=== PATIENT | female | born 1955 | race Caucasian/White ===

== ENCOUNTER 2022-10-18 08:39 | Emergency (ER) | payer MEDICARE, SELFPAY ==
--- NOTE | 2022-10-18 08:55 | EXP.UTC ---
Discharge Plan Disposition Patient Disposition: Home, Self-Care Condition: Good Prescriptions Prescriptions: New azithromycin [Zithromax] 250 mg tablet 250 mg PO UD DOSE PK Qty: 6 0RF Rx Instructions: Take two (2) tablets today, then one (1) tablet days #2 thru #5 benzonatate [benzonatate] 100 mg capsule 100 mg PO TIDP PRN (Reason: Cough) Qty: 30 0RF Paxlovid (EUA) 300 mg (150 mg x 2)-100 mg tablet See Rx Instructions .ROUTE .COMPLEX Qty: 30 0RF Rx Instructions: take TWO 150 mg tablets of nirmatrelvir with ONE 100 mg tablet of ritonavir twice daily for 5 days No Action omega-3 acid ethyl esters [Lovaza] 1 gram capsule 2 cap PO BID raloxifene 60 mg tablet 60 mg PO ONCE valsartan [Diovan] 80 mg tablet 80 mg PO BID budesonide-formoterol [Symbicort] 80-4.5 mcg/actuation HFA aerosol inhaler 2 puff INHALATION BID azelastine-fluticasone [Dymista] 137-50 mcg/spray spray,non-aerosol 1 spray INTRANASAL BID montelukast [Singulair] 10 mg tablet 10 mg PO QPM lovastatin 10 mg tablet 10 mg PO QPM olopatadine [Patanol] 0.1 % drops 1 drp OPHTHALMIC BID loratadine [Allergy Relief (loratadine)] 10 mg tablet 10 mg PO ONCE Referrals Follow up/Referrals: Nisa Benavidez APRN [Primary Care Provider] - See instructions Activity Restrictions/Add. Instructions Additional Instructions/Restrictions: Drink plenty of fluids. Take tylenol or ibuprofen for pain or fever. Take the medications as directed. Follow up with your regular doctor. GO TO THE ER FOR ANY WORSENING SYMPTOMS Quarantine until you know the results of your covid-19 test. Notify your school or workplace of your results and follow their instructions regarding return to work/school. Finish the steroids that you are currently taking. Clinical Impressions Clinical Impression: Acute viral syndrome Instructions Patient Instructions: Coronavirus Disease 2019, Preventing the Spread of Coronavirus Discharge Instructions Discharge ED Provider: Kamron Abernathy [facility] [place] General Stated complaint: sob, cough, head congestion, sore throat Time Seen by Provider: 10/18/22 08:55 History of Present Illness Provider Complaint: She states that for the past 3 days she has felt bad, had a cough, had sinus congestion and a sore throat. Her tested positive for covid-19 last week. She denies any shortness of breath. Related Data Home Medications Medication Instructions Recorded Confirmed azelastine-fluticasone 137 mcg-50 1 spray intranasal BID 05/07/18 mcg/spray nasal spray (Dymista) budesonide-formoterol HFA 80 2 puff inhalation BID 05/07/18 mcg-4.5 mcg/actuation aerosol inhaler (Symbicort) loratadine 10 mg tablet (Allergy 10 mg PO ONCE 05/07/18 Relief (loratadine)) lovastatin 10 mg tablet 10 mg PO QPM 05/07/18 montelukast 10 mg tablet 10 mg PO QPM 05/07/18 (Singulair) olopatadine 0.1 % eye drops 1 drp ophthalmic (eye) BID 05/07/18 (Patanol) omega-3 acid ethyl esters 1 gram 2 cap PO BID 05/07/18 capsule (Lovaza) raloxifene 60 mg tablet 60 mg PO ONCE 05/07/18 valsartan 80 mg tablet (Diovan) 80 mg PO BID 05/07/18 Previous Rx's Medication Instructions Recorded azithromycin 250 mg tablet 250 mg PO UD DOSE PK #6 tabs 10/18/22 (Zithromax) benzonatate 100 mg capsule 100 mg PO TIDP PRN Cough #30 caps 10/18/22 nirmatrelvir 300 mg (150 mg See Rx Instructions PO .COMPLEX 10/18/22 x2)-ritonavir 100 mg tablet,dose #30 tabs pack(EUA) (Paxlovid) Allergies Allergy/AdvReac Type Severity Reaction Status Date / Time naproxen [NAPROXEN] Allergy Intermediate NA-NAUSEA Verified 10/18/22 09:00 Penicillins Allergy Verified 10/18/22 09:00 [facility] Disclaimer: The information contained in this section may have been updated after the patient was seen, as this information can be updated by other users. Social History (Reviewed 10/19/22
[2022-10-18 08:58] VITALS: BP 133/73; PULSE 98; RESP 18; TEMP 37.2; O2SAT 99; BMI 38.4
[2022-10-18 09:14] LABS: UTC Influenza A Antigen Negative (Negative)
[2022-10-18 09:15] LABS: UTC Influenza B Antigen Negative (Negative)
[2022-10-18 09:51] VITALS: BP 133/73; PULSE 98; RESP 18; TEMP 37.2
== END 2022-10-18 09:52 | disposition home or self-care (01) ==
PROVIDERS: Emergency Provider Nurse Practitioner Family; PCP Nurse Practitioner
DX: U07.1 COVID-19 (principal); R06.02 Shortness of breath; R05.9 Cough, unspecified; R09.89 Other specified symptoms and signs involving the circulatory and respiratory systems; J02.9 Acute pharyngitis, unspecified
CPT/HCPCS: 87804; 99212; C9803; G0463; U0003; U0005

== ENCOUNTER 2024-08-03 08:15 | Emergency (ER) | payer MEDICARE, SELFPAY ==
[2024-08-03 08:30] VITALS: BP 116/59; PULSE 90; RESP 20; TEMP 36.8; O2SAT 96; BMI 33.3
--- NOTE | 2024-08-03 08:39 | ED_ITS ---
Discharge Plan Disposition Patient Disposition: Home, Self-Care Condition: Good Prescriptions Prescriptions: New benzonatate 100 mg capsule 100 mg PO TID PRN (Reason: cough) Qty: 30 0RF azithromycin [Zithromax Z-Vlad] 250 mg tablet See Rx Instructions .ROUTE .COMPLEX 5 Days Qty: 6 0RF Rx Instructions: For 250 mg dose pack: take 500 mg today (day 1), then 250 mg for 4 days (days 2-5) guaifenesin [Mucinex] 600 mg tablet extended release 12hr 600 - 1,200 mg PO BID PRN (Reason: cough) Qty: 20 0RF prednisone 10 mg tablet 10 mg PO BID 5 Days Qty: 10 0RF No Action omega-3 acid ethyl esters [Lovaza] 1 gram capsule 2 cap PO BID azelastine-fluticasone [Dymista] 137-50 mcg/spray spray,non-aerosol 1 spray INTRANASAL BID montelukast [Singulair] 10 mg tablet 10 mg PO QPM olopatadine [Patanol] 0.1 % drops 1 drp OPHTHALMIC BID cyclobenzaprine 10 mg tablet 20 mg PO DAILY Patient Comments: TAKE 2 TABLETS BY MOUTH ONCE DAILY tizanidine 4 mg tablet 4 mg PO DAILY Patient Comments: TAKE 1 TABLET BY MOUTH ONCE DAILY famotidine 40 mg tablet 40 mg PO DAILY Patient Comments: TAKE 1 TABLET BY MOUTH ONCE DAILY acyclovir 400 mg tablet 400 mg PO DAILY Patient Comments: TAKE 1 TABLET BY MOUTH ONCE DAILY leflunomide 20 mg tablet 20 mg PO DAILY Patient Comments: TAKE 1 TABLET BY MOUTH ONCE DAILY fluticasone propion-salmeterol 100-50 mcg/dose blister with device 2 ea INHALATION BID Patient Comments: INHALE 2 PUFFS TWICE DAILY albuterol sulfate 90 mcg/actuation HFA aerosol inhaler 2 puff INHALATION Q6HP PRN (Reason: SOA) Patient Comments: INHALE 2 PUFFS BY MOUTH EVERY 6 HOURS NEEDED ipratropium bromide 42 mcg (0.06 %) spray,non-aerosol 2 spray INTRANASAL TID Patient Comments: USE 2 SPRAY(S) IN EACH NOSTRIL THREE TIMES DAILY hydroxyzine HCl 10 mg tablet 10 mg PO HS Patient Comments: TAKE 1 TABLET BY MOUTH AT BEDTIME NEEDED FOR ITCHING losartan 100 mg tablet 100 mg PO DAILY Patient Comments: TAKE 1 TABLET BY MOUTH ONCE DAILY spironolactone 50 mg tablet 50 mg PO DAILY Patient Comments: TAKE 1 TABLET BY MOUTH ONCE DAILY ezetimibe 10 mg tablet 10 mg PO DAILY Patient Comments: TAKE 1 TABLET BY MOUTH ONCE DAILY AT BEDTIME levocetirizine 5 mg tablet 5 mg PO DAILY Patient Comments: TAKE 1 TABLET BY MOUTH ONCE DAILY [place] Ellipta 100-62.5-25 mcg blister with device 1 ea INHALATION DAILY Patient Comments: INHALE 1 PUFF BY MOUTH ONCE DAILY aspirin 81 mg Capsule 81 mg PO DAILY Referrals Follow up/Referrals: Nisa Benavidez APRN [Primary Care Provider] - See instructions Activity Restrictions/Add. Instructions Additional Instructions/Restrictions: *Monitor Temp, Over the counter Motrin or Tylenol as directed/as needed Tylenol every 4 hours and Motrin every 6 hours (as long as your family doctor has told you that you can take it) for fever or pain. and straight to ER if unable to l ower temp less than 101.0 after medication given *Warm salt water gargles may help to soothe the throat *Throat Lozenges? *Warm fluids like tea with honey may help to soothe the throat? *Sleep elevated *Humidifier/Vaporizer Take medication as prescribed Follow up IMMEDIATELY for new or worsening symptoms or no Noticeable improvement over the next 48-72 hours. 911 for difficulty breathing or swallowing Clinical Impressions Clinical Impression: Otitis media Qualifiers: Otitis media type: unspecified Laterality: right Qualified Code(s): H66.91 - Otitis media, unspecified, right ear Instructions Patient Instructions: Ear Infections (Alternative Therapy), Middle Ear Infection Print Language Print Language: Kazakh Discharge ED Provider: Winnie Snow [facility] [place] HPI General Stated complaint: cough, congestion, Pain in R ear Mode of Arrival: Ambulatory Source of Information: Patient Limitations: No Limitations Time Seen by Provider: 08/03/24 08:39 Description of Symptoms (Recalled from Triage Doc. by RN): PATIENT C/O CONGESTION, COUGH AND EAR PAIN X 3 DAYS HEENT Symptoms (Recalled from RN notes): Yes Resp Symptoms (Recalled from RN notes): Yes Skin Symptoms (Recalled from RN notes): No MS Symptoms (Recalled from RN notes): No Functional Status (Recalled from RN notes): WNL History of Present Illness Provider Complaint: Patient states that she has been having cough, sinus and chest congestion, pain in her right ear and drainage in the back of her throat So today she came in to get checked worried she may have a sinus infection or ear infection Related Data Home Medications ?Medication ?Instructions ?Recorded ?Confirmed azelastine 137 mcg-fluticasone 50 1 spray intranasal BID 05/07/18 08/03/24 mcg/spray nasal spray (Dymista) montelukast 10 mg tablet 10 mg PO QPM 05/07/18 08/03/24 (Singulair) olopatadine 0.1 % eye drops 1 drp ophthalmic (eye) BID 05/07/18 08/03/24 (Patanol) omega-3 acid ethyl esters 1 gram 2 cap PO BID 05/07/18 08/03/24 capsule (Lovaza) acyclovir 400 mg tablet 400 mg PO DAILY 08/03/24 08/03/24 albuterol sulfate 90 mcg/actuation 2 puff inhalation Q6HP PRN SOA 08/03/24 08/03/24 aerosol inhaler aspirin 81 mg capsule 81 mg PO DAILY 08/03/24 08/03/24 cyclobenzaprine 10 mg tablet 20 mg PO DAILY 08/03/24 08/03/24 ezetimibe 10 mg tablet 10 mg PO DAILY 08/03/24 08/03/24 famotidine 40 mg tablet 40 mg PO DAILY 08/03/24 08/03/24 fluticasone 100 mcg-salmeterol 50 2 ea inhalation BID 08/03/24 08/03/24 mcg/dose blistr powdr for inhalation fluticasone fur. 100 mcg-umeclid 1 ea inhalation DAILY 08/03/24 08/03/24 62.5 mcg-vilant 25 mcg inhalat.powder (Trelegy Ellipta) hydroxyzine HCl 10 mg tablet 10 mg PO HS 08/03/24 08/03/24 ipratropium bromide 42 mcg (0.06 2 spray intranasal TID 08/03/24 08/03/24 %) nasal spray leflunomide 20 mg tablet 20 mg PO DAILY 08/03/24 08/03/24 levocetirizine 5 mg tablet 5 mg PO DAILY 08/03/24 08/03/24 losartan 100 mg tablet 100 mg PO DAILY 08/03/24 08/03/24 spironolactone 50 mg tablet 50 mg PO DAILY 08/03/24 08/03/24 tizanidine 4 mg tablet 4 mg PO DAILY 08/03/24 08/03/24 Previous Rx's ?Medication ?Instructions ?Recorded azithromycin 250 mg tablet See Rx Instructions PO .COMPLEX 5 08/03/24 (Zithromax Z-Vlad) days #6 tabs benzonatate 100 mg capsule 100 mg PO TID PRN cough #30 caps 08/03/24 guaifenesin 600 mg tablet, 600 - 1,200 mg (1 - 2 x 600 mg) PO 08/03/24 extended release 12 hr (Mucinex) BID PRN cough #20 tabs prednisone 10 mg tablet 10 mg PO BID 5 days #10 tabs 08/03/24 Allergies Allergy/AdvReac Type Severity Reaction Status Date / Time naproxen [NAPROXEN] Allergy Intermediate NA-NAUSEA Verified 10/18/22 09:00 cefadroxil Allergy Unknown Verified 08/03/24 08:37 allergy reaction Penicillins Allergy Unknown Verified 08/03/24 08:37 allergy reaction Worker's Comp Is this a Worker's Comp case?: No [facility] Disclaimer: The information contained in this section may have been updated after the patient was seen, as this information can be updated by other users. Medical History (Updated 08/03/24 @ 08:48 by Winnie Snow APRN) Brady's palsy Asthma Hyperlipidemia Hypertension Surgical History (Updated 08/03/24 @ 08:39 by Josefina Alberto RN) History of tonsillectomy History of section Social History Smoking Status: Never smoker alcohol intake: never current occupational status: employed Travel in the last 8 weeks: None ROS Obtained: Yes All systems reviewed & no additional complaints except as documented and Yes Systems reviewed as appropriate & no additional complaints except as documented Constitutional Constitutional: Reports system reviewed and no additional complaints, except as documented and Reports as per HPI ENT Ears, Nose, Mouth, and Throat: Reports system reviewed and no additional complaints, except as documented, Reports as per HPI, Reports otalgia, Reports sinus pain and Reports sinus pressure Cardiovascular Cardiovascular: Reports system reviewed and no additional complaints, except as documented and Reports as per HPI Respiratory Respiratory: Reports system reviewed and no additional complaints, except as documented, Reports as per HPI, Reports chest congestion and Reports cough Gastrointestinal Gastrointestingal: Reports system reviewed and no additional complaints, except as documented and as per HPI Physical Exam General General appearance: alert and in no apparent distress ENT ENT exam: Present mucous membranes moist Expanded ENT Exam TM/Canal exam: Right TM: erythema and bulging Nose exam: Present sinus tenderness Throat exam: Present other (PND noted) Respiratory Respiratory exam: Present normal lung sounds bilaterally; Absent respiratory distress or wheezes Cardiovascular Cardiovascular exam: Present regular rate, normal rhythm and normal heart sounds Abdominal Exam Abdominal exam: Present soft and normal bowel sounds; Absent distention or tenderness Neurological Exam Neurological exam: Present alert, oriented X3 and normal gait Medical Decision Making Medical Records Screening: Per USPSTF and CDC recommendations, given the prevalence of disease in our region, it is our hospital?s policy to screen for HIV and viral Hepatitis for all patients aged 18 and over and those with ongoing risk factors. Drew Inquiry Pt receiving controlled substance: No Drew was queried for this patient: No Vital Signs: 08/03/24 08:30 Temperature 98.2 F Temperature Source Oral Pulse Rate [Left Brachial] 90 Respiratory Rate 20 Blood Pressure [Left Arm] 116/59 L Blood Pressure Mean [Left Arm] 78 Blood Pressure Source [Left Arm] Automatic Cuff Blood Pressure Position [Left Arm] Sitting 02 Sat by Pulse Oximetry 96 Oxygen Delivery Method Room Air Medical Decision Narrative: Patient states that she has taken prednisone in the past without complications or reactions
[2024-08-03 08:54] VITALS: BP 116/59; PULSE 90; RESP 20; TEMP 36.8; O2SAT 96
== END 2024-08-03 08:58 | disposition home or self-care (01) ==
PROVIDERS: Emergency Provider Nurse Practitioner; PCP Nurse Practitioner
DX: H66.91 Otitis media, unspecified, right ear (principal)
CPT/HCPCS: 99213; G0381

== ENCOUNTER 2024-10-19 08:26 | Emergency (ER) | payer MEDICARE, SELFPAY ==
[2024-10-19 09:00] VITALS: BP 123/73; PULSE 85; RESP 19; TEMP 36.9; O2SAT 97; BMI 32.8
--- NOTE | 2024-10-19 09:18 | ED_ITS ---
Discharge Plan Disposition Patient Disposition: Home, Self-Care Condition: Good Prescriptions Prescriptions: New azithromycin [Zithromax Z-Vlad] 250 mg tablet See Rx Instructions .ROUTE .COMPLEX 5 Days Qty: 6 0RF Rx Instructions: For 250 mg dose pack: take 500 mg today (day 1), then 250 mg for 4 days (days 2-5) methylprednisolone [Medrol (Vlad)] 4 mg tablets,dose pack See Rx Instructions .Route .COMPLEX 6 Days Qty: 21 0RF Rx Instructions: taper pack; No Action cyclobenzaprine 10 mg tablet 20 mg PO DAILY Patient Comments: TAKE 2 TABLETS BY MOUTH ONCE DAILY tizanidine 4 mg tablet 4 mg PO DAILY Patient Comments: TAKE 1 TABLET BY MOUTH ONCE DAILY famotidine 40 mg tablet 40 mg PO DAILY Patient Comments: TAKE 1 TABLET BY MOUTH ONCE DAILY acyclovir 400 mg tablet 400 mg PO DAILY Patient Comments: TAKE 1 TABLET BY MOUTH ONCE DAILY leflunomide 20 mg tablet 20 mg PO DAILY Patient Comments: TAKE 1 TABLET BY MOUTH ONCE DAILY montelukast 10 mg tablet 10 mg PO DAILY Patient Comments: TAKE 1 TABLET BY MOUTH ONCE DAILY hydroxyzine HCl 10 mg tablet 10 mg PO DAILY losartan 100 mg tablet 100 mg PO DAILY Patient Comments: TAKE 1 TABLET BY MOUTH ONCE DAILY spironolactone 50 mg tablet 50 mg PO DAILY Patient Comments: TAKE 1 TABLET BY MOUTH ONCE DAILY ezetimibe 10 mg tablet 10 mg PO HS Patient Comments: TAKE 1 TABLET BY MOUTH ONCE DAILY AT BEDTIME omega-3 acid ethyl esters 1 gram capsule 1 g PO DAILY Patient Comments: TAKE 2 CAPSULES BY MOUTH TWICE DAILY levocetirizine 5 mg tablet 5 mg PO DAILY [place] Ellipta 100-62.5-25 mcg blister with device 1 ea INHALATION DAILY Patient Comments: INHALE 1 PUFF BY MOUTH ONCE DAILY Referrals Follow up/Referrals: Nisa Benavidez APRN [Primary Care Provider] - See instructions Activity Restrictions/Add. Instructions Additional Instructions/Restrictions: *Monitor Temp, Over the counter Motrin or Tylenol as directed/as needed Tylenol every 4 hours and Motrin every 6 hours (as long as your family doctor has told you that you can take it) for fever or pain. and straight to ER if unable to lower temp less than 101.0 after medication given *Warm salt water gargles may help to soothe the throat *Throat Lozenges? *Warm fluids like tea with honey may help to soothe the throat? *Sleep elevated *Humidifier/Vaporizer Follow up IMMEDIATELY for new or worsening symptoms or no Noticeable improvement over the next 48-72 hours. 911 for difficulty breathing or swallowing Clinical Impressions Clinical Impression: Sinusitis Instructions Patient Instructions: DI for Sinusitis, Sinusitis Print Language Print Language: Romanian Discharge ED Provider: Winnie Snow [facility] [place] HPI General Stated complaint: pain in ears, cough, congest, H/A Mode of Arrival: Ambulatory Source of Information: Patient Limitations: No Limitations Time Seen by Provider: 10/19/24 09:18 Description of Symptoms (Recalled from Triage Doc. by RN): PATIENT C/O HEADACHE, COUGH, DRAINAGE, AND SCRATCHY THROAT X 2 DAYS HEENT Symptoms (Recalled from RN notes): Yes Resp Symptoms (Recalled from RN notes): Yes Skin Symptoms (Recalled from RN notes): No MS Symptoms (Recalled from RN notes): No Functional Status (Recalled from RN notes): WNL History of Present Illness Provider Complaint: Patient states that she has been having sinus pain and pressure, headache, pressure like feeling in her ears and feeling like she is getting a sinus infection States that symptoms have got worse over the last few days Related Data Home Medications ?Medication ?Instructions ?Recorded ?Confirmed acyclovir 400 mg tablet 400 mg PO DAILY 10/19/24 10/19/24 cyclobenzaprine 10 mg tablet 20 mg PO DAILY 10/19/24 10/19/24 ezetimibe 10 mg tablet 10 mg PO HS 10/19/24 10/19/24 famotidine 40 mg tablet 40 mg PO DAILY 10/19/24 10/19/24 fluticasone fur. 100 mcg-umeclid 1 ea inhalation DAILY 10/19/24 10/19/24 62.5 mcg-vilant 25 mcg inhalat.powder (Trelegy Ellipta) hydroxyzine HCl 10 mg tablet 10 mg PO DAILY 10/19/24 10/19/24 leflunomide 20 mg tablet 20 mg PO DAILY 10/19/24 10/19/24 levocetirizine 5 mg tablet 5 mg PO DAILY 10/19/24 10/19/24 losartan 100 mg tablet 100 mg PO DAILY 10/19/24 10/19/24 montelukast 10 mg tablet 10 mg PO DAILY 10/19/24 10/19/24 omega-3 acid ethyl esters 1 gram 1 g PO DAILY 10/19/24 10/19/24 capsule spironolactone 50 mg tablet 50 mg PO DAILY 10/19/24 10/19/24 tizanidine 4 mg tablet 4 mg PO DAILY 10/19/24 10/19/24 Previous Rx's ?Medication ?Instructions ?Recorded azithromycin 250 mg tablet See Rx Instructions PO .COMPLEX 5 10/19/24 (Zithromax Z-Vlad) days #6 tabs methylprednisolone 4 mg tablets in See Rx Instructions .Route 10/19/24 a dose pack (Medrol (Vlad)) .COMPLEX 6 days #21 tabs Allergies Allergy/AdvReac Type Severity Reaction Status Date / Time naproxen (NAPROXEN) Allergy Intermediate NA-NAUSEA Verified 10/18/22 09:00 cefadroxil Allergy Unknown Verified 08/03/24 08:37 allergy reaction erythromycin base Allergy Unknown Verified 10/19/24 09:16 allergy reaction Penicillins Allergy Unknown Verified 08/03/24 08:37 allergy reaction Worker's Comp Is this a Worker's Comp case?: No [facility] Disclaimer: The information contained in this section may have been updated after the patient was seen, as this information can be updated by other users. Medical History (Updated 10/19/24 @ 09:33 by Winnie Snow APRN) Brady's palsy Asthma Hyperlipidemia Hypertension Surgical History (Updated 08/03/24 @ 08:39 by Josefina Alberto RN) History of tonsillectomy History of section Social History Smoking Status: Never smoker alcohol intake: never current occupational status: employed Travel in the last 8 weeks: None Have you lived/traveled outside [place] in past 30 days?: No Contact w/someone who lives/traveled outside US past 30 days?: No Exposure to someone with infectious disease in past 14 days?: No Do you have a fever (greater than 100.4 F or 38 C)?: No Have you tested positive for COVID-19: No Exposed to someone with COVID-19 in past 14 days?: No Do you have a sore throat?: Yes Do you have a cough?: Yes Do you have any weakness?: No Do you have any diarrhea?: No Are you experiencing any unusual bleeding?: No Do you have any muscle aches/pain?: No Do you have any abdominal pain?: No Are you experiencing loss of taste or smell?: No ROS Obtained: Yes All systems reviewed & no additional complaints except as documented and Yes Systems reviewed as appropriate & no additional complaints except as documented Constitutional Constitutional: Reports system reviewed and no additional complaints, except as documented, Reports as per HPI and Reports headache(s) ENT Ears, Nose, Mouth, and Throat: Reports system reviewed and no additional complaints, except as documented, Reports as per HPI, Reports otalgia, Reports headache(s), Reports sinus pain, Reports sinus pressure and Reports sore throat Cardiovascular Cardiovascular: Reports system reviewed and no additional complaints, except as documented and Reports as per HPI Respiratory Respiratory: Reports system reviewed and no additional complaints, except as documented and Reports as per HPI Gastrointestinal Gastrointestingal: Reports system reviewed and no additional complaints, except as documented and as per HPI Neurologic Neurologic: Reports headache(s) Physical Exam General General appearance: alert and in no apparent distress ENT ENT exam: Present mucous membranes moist Expanded ENT Exam TM/Canal exam: Right TM: erythema and loss of landmarks Nose exam: Present sinus tenderness Throat exam: Present other (pharyngeal erythema noted with PND) Respiratory Respiratory exam: Present normal lung sounds bilaterally; Absent respiratory distress or wheezes Cardiovascular Cardiovascular exam: Present regular rate, normal rhythm and normal heart sounds Neurological Exam Neurological exam: Present alert, oriented X3 and normal gait Medical Decision Making Medical Records Screening: Per USPSTF and CDC recommendations, given the prevalence of disease in our region, it is our hospital?s policy to screen for HIV and viral Hepatitis for all patients aged 18 and over and those with ongoing risk factors. Drew Inquiry Pt receiving controlled substance: No Drew was queried for this patient: No Vital Signs: 10/19/24 09:00 Temperature 98.4 F Temperature Source Oral Pulse Rate [Left Brachial] 85 Respiratory Rate 19 Blood Pressure [Left Arm] 123/73 Blood Pressure Mean [Left Arm] 89 Blood Pressure Source [Left Arm] Automatic Cuff Blood Pressure Position [Left Arm] Sitting 02 Sat by Pulse Oximetry 97 Oxygen Delivery Method Room Air Medical Decision Narrative: Patient states that she has taken azithromycin and Medrol in the past without reactions or complications
[2024-10-19 09:36] VITALS: BP 123/73; PULSE 85; RESP 19; TEMP 36.9; O2SAT 97
== END 2024-10-19 09:38 | disposition home or self-care (01) ==
PROVIDERS: Emergency Provider Nurse Practitioner; PCP Nurse Practitioner
DX: J01.90 Acute sinusitis, unspecified (principal)
CPT/HCPCS: 99213; G0381

== ENCOUNTER 2025-06-15 11:37 | Emergency (ER) | payer MEDICARE, SELFPAY ==
[2025-06-15] VITALS (8 sets, daily range): BP systolic 115–153; BP diastolic 53–83; PULSE 62–79; RESP 12–22; TEMP 36.7–36.9; O2SAT 95–98; BMI 35.1
--- NOTE | 2025-06-15 11:31 | ECG_ITS ---
APPROVED REPORT Exam: Resting ECG HR:62 bpm ECG Measurements Heart Rate 62 AXES PA 155 P 69 QRSd 85 QRS 64 QT 384 T 68 QTc 388 Conclusion SINUS RHYTHM LOW QRS VOLTAGE IN PRECORDIAL LEADS [QRS DEFLECTION < 1.0 mV IN CHEST LEADS] BORDERLINE ECG UNCONFIRMED REPORT Normal sinus rhythm. No ST elevation or depression. QTc normal at 388 Electronically signed by : MARIO HECTOR, 06/18/2025 06:58:22
--- NOTE | 2025-06-15 11:37 | CT_ITS ---
PROCEDURE INFORMATION: Exam: CTA Chest With Contrast Exam date and time: 06/15/2025 12:32 PM Age: 69 years old Clinical indication: Pain; Chest pressure; Additional info: Chest pain, shortness of breath TECHNIQUE: Imaging protocol: Computed tomographic angiography of the chest with contrast. Exam focused on the arteries. 3D rendering (Not supervised by radiologist): MIP and/or 3D reconstructed images were created by the technologist. Radiation optimization: All CT scans at this facility use at least one of these dose optimization techniques: automated exposure control; mA and/or kV adjustment per patient size (includes targeted exams where dose is matched to clinical indication); or iterative reconstruction. Contrast material: ISOVUE; Contrast volume: 80 ml; Contrast route: INTRAVENOUS (IV); COMPARISON: No relevant prior studies available. FINDINGS: Pulmonary arteries: No acute pulmonary emboli. Aorta: Unremarkable. No aortic aneurysm. No aortic dissection. Thyroid: Enlarged thyroid gland, with several isodense nodules, not definitively characterized on this study. Lungs: Small area of localized emphysema within the superior segment right lower lobe. Minimal posterior dependent atelectasis. Calcified granuloma within the posterior right lower lobe. Calcified granuloma within the right upper lobe. Pleural spaces: Unremarkable. No pneumothorax. No pleural effusion. Heart: Unremarkable. No cardiomegaly. No pericardial effusion. Lymph nodes: Calcified right hilar lymph nodes, compatible with prior granulomatous disease. Adrenal glands: 2.6 cm benign right adrenal adenoma. Bones/joints: Multilevel thoracic spine degenerative disc space narrowing and osteophyte formation. Soft tissues: Unremarkable. IMPRESSION: 1. No acute pulmonary emboli. 2. Enlarged thyroid gland, with several isodense nodules, not definitively characterized on this study. Recommend further evaluation with sonography on a nonurgent basis. COMMENTS: 1. Consistent with the [employer]'s Incidental Findings Committee white paper (J Am Samir Radiol 2015): In patients aged 35 years and older with an incidental thyroid nodule equal to or greater than 1.[address], MRI or extrathyroidal US, further evaluation with dedicated thyroid US is recommended for patients with normal life expectancy and without comorbidities. For smaller nodules without suspicious features, no further evaluation or follow up is recommended. 2. The presence of pulmonary emphysema on CT is an independent risk factor for lung cancer. In the absence of a history or active diagnosis of lung cancer, it is recommended that this patient with emphysema be evaluated for enrollment in a low dose CT lung cancer screening program.
--- NOTE | 2025-06-15 11:38 | [facility].EDGENADL ---
Discharge Plan Disposition Patient Disposition: Home, Self-Care Prescriptions Prescriptions: No Action cyclobenzaprine 10 mg tablet 20 mg PO DAILY Patient Comments: TAKE 2 TABLETS BY MOUTH ONCE DAILY tizanidine 4 mg tablet 4 mg PO DAILY Patient Comments: TAKE 1 TABLET BY MOUTH ONCE DAILY famotidine 40 mg tablet 40 mg PO DAILY Patient Comments: TAKE 1 TABLET BY MOUTH ONCE DAILY acyclovir 400 mg tablet 400 mg PO DAILY Patient Comments: TAKE 1 TABLET BY MOUTH ONCE DAILY leflunomide 20 mg tablet 20 mg PO DAILY Patient Comments: TAKE 1 TABLET BY MOUTH ONCE DAILY montelukast 10 mg tablet 10 mg PO DAILY Patient Comments: TAKE 1 TABLET BY MOUTH ONCE DAILY hydroxyzine HCl 10 mg tablet 10 mg PO DAILY losartan 100 mg tablet 100 mg PO DAILY Patient Comments: TAKE 1 TABLET BY MOUTH ONCE DAILY spironolactone 50 mg tablet 50 mg PO DAILY Patient Comments: TAKE 1 TABLET BY MOUTH ONCE DAILY ezetimibe 10 mg tablet 10 mg PO HS Patient Comments: TAKE 1 TABLET BY MOUTH ONCE DAILY AT BEDTIME omega-3 acid ethyl esters 1 gram capsule 1 g PO DAILY Patient Comments: TAKE 2 CAPSULES BY MOUTH TWICE DAILY levocetirizine 5 mg tablet 5 mg PO DAILY Trelegy Ellipta 100-62.5-25 mcg blister with device 1 ea INHALATION DAILY Patient Comments: INHALE 1 PUFF BY MOUTH ONCE DAILY azithromycin [Zithromax Z-Vlad] 250 mg tablet See Rx Instructions .ROUTE .COMPLEX 5 Days Qty: 6 0RF Rx Instructions: For 250 mg dose pack: take 500 mg today (day 1), then 250 mg for 4 days (days 2-5) methylprednisolone [Medrol (Vlad)] 4 mg tablets,dose pack See Rx Instructions .Route .COMPLEX 6 Days Qty: 21 0RF Rx Instructions: taper pack; Referrals Follow up/Referrals: Jermaine Branham MD [Staff Physician, Cardiology] - See instructions Provider,MD Marshall [Primary Care Provider, Medical] - See instructions Activity Restrictions/Add. Instructions Additional Instructions/Restrictions: You were found to have multiple nodules on your thyroid. I encourage you to follow-up with your primary care doctor as they may want to do ultrasounds to investigate this further. There is no evidence of a heart attack on today's visit, however I am referring you to our leaf conditioner, Dr. Branham for follow-up. I encourage you to call their office to schedule an appointment. If you develop any new or worsening symptoms, or if you become concerned for your health for any reason, return to the emergency department for evaluation Clinical Impressions Clinical Impression: Chest pain, Multiple thyroid nodules Print Language Print Language: [place] Discharge ED Provider: Charan Acosta Adult HPI General Chief complaint: Chest Pain Stated complaint: CP Time Seen by Provider: 06/15/25 11:38 Mode of Arrival: EMS Source of Information: Patient Limitations: No Limitations History of Present Illness HPI narrative: Tania Ortiz is a 69y female with past medical history of hypertension, hyperlipidemia who presents to the emergency department for complaints of chest pain. 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 She states that she was sitting when this happened and she went inside to sit in the court house, however the symptoms did not resolve. She went back out and met with the paramedics and was given 3 and 25 mg of aspirin. She states that her pain then went from a 9 out of 10 to a 1 out of 10. Reportedly she was initially hypotensive and started on fluid bolus, however she is normotensive here. She states that the pain is worsened with deep breathing. She denies any history of blood clots. She denies any recent leg swelling. She denies any hemoptysis or cough. She states that she does not feel overtly short of breath. She denies any cardiac history. Related Data Home Medications ?Medication ?Instructions ?Recorded ?Confirmed acyclovir 400 mg tablet 400 mg PO DAILY 10/19/24 10/19/24 cyclobenzaprine 10 mg tablet 20 mg PO DAILY 10/19/24 10/19/24 ezetimibe 10 mg tablet 10 mg PO HS 10/19/24 10/19/24 famotidine 40 mg tablet 40 mg PO DAILY 10/19/24 10/19/24 fluticasone fur. 100 mcg-umeclid 1 ea inhalation DAILY 10/19/24 10/19/24 62.5 mcg-vilant 25 mcg inhalat.powder (Trelegy Ellipta) hydroxyzine HCl 10 mg tablet 10 mg PO DAILY 10/19/24 10/19/24 leflunomide 20 mg tablet 20 mg PO DAILY 10/19/24 10/19/24 levocetirizine 5 mg tablet 5 mg PO DAILY 10/19/24 10/19/24 losartan 100 mg tablet 100 mg PO DAILY 10/19/24 10/19/24 montelukast 10 mg tablet 10 mg PO DAILY 10/19/24 10/19/24 omega-3 acid ethyl esters 1 gram 1 g PO DAILY 10/19/24 10/19/24 capsule spironolactone 50 mg tablet 50 mg PO DAILY 10/19/24 10/19/24 tizanidine 4 mg tablet 4 mg PO DAILY 10/19/24 10/19/24 Previous Rx's ?Medication ?Instructions ?Recorded azithromycin 250 mg tablet See Rx Instructions PO .COMPLEX 5 10/19/24 (Zithromax Z-Vlad) days #6 tabs methylprednisolone 4 mg tablets in See Rx Instructions .Route 10/19/24 a dose pack (Medrol (Vlad)) .COMPLEX 6 days #21 tabs Allergies Allergy/AdvReac Type Severity Reaction Status Date / Time naproxen (NAPROXEN) Allergy Intermediate NA-NAUSEA Verified 10/18/22 09:00 cefadroxil Allergy Unknown Verified 08/03/24 08:37 allergy reaction erythromycin base Allergy Unknown Verified 10/19/24 09:16 allergy reaction Penicillins Allergy Unknown Verified 08/03/24 08:37 allergy reaction PFSH PFSH Disclaimer: The information contained in this section may have been updated after the patient was seen, as this information can be updated by other users. Medical History (Updated 06/15/25 @ 13:35 by Charan Acosta MD) Brady's palsy Asthma Hyperlipidemia Hypertension Surgical History (Updated 08/03/24 @ 08:39 by Josefina Alberto RN) History of tonsillectomy History of section Social History Smoking Status: Never smoker alcohol intake: never current occupational status: employed Travel in the last 8 weeks?: None Have you lived/traveled outside [place] in past 30 days?: No Contact w/someone who lives/traveled outside US past 30 days?: No Exposure to someone with infectious disease in past 14 days?: No Do you have a fever (greater than 100.4 F or 38 C)?: No Have you tested positive for COVID-19?: No Exposed to someone with COVID-19 in past 14 days?: No Do you have a sore throat?: No Do you have a cough?: No Do you have any weakness?: No Do you have any diarrhea?: No Are you experiencing any unusual bleeding?: No Do you have any muscle aches/pain?: No Do you have any abdominal pain?: No Are you experiencing loss of taste or smell?: No Other Medical History Have you received the Flu Vaccine for this season: Yes ROS Obtained: Yes Systems reviewed as appropriate & no additional complaints except as documented Physical Exam General General appearance: alert and in no apparent distress Head Head exam: atraumatic Eye Eye exam: Present normal appearance ENT ENT exam: Present normal external ear exam Neck Neck exam: Present full ROM Chest Chest inspection: Present symmetric chest wall rise Respiratory Respiratory exam: Present normal lung sounds bilaterally; Absent respiratory distress Cardiovascular Cardiovascular exam: Present regular rate and normal rhythm Abdominal Exam Abdominal exam: Present soft; Absent tenderness or guarding Extremities Exam Extremities exam: Present normal inspection Back Exam Back exam: Present normal inspection Neurological Exam Neurological exam: Present alert and oriented X3 Psychiatric Psychiatric exam: Present normal affect Skin Skin exam: Present warm and dry Medical Decision Making Medical Records Screening: Per USPSTF and CDC recommendations, given the prevalence of disease in our region, it is our hospital?s policy to screen for HIV and viral Hepatitis for all patients aged 18 and over and those with ongoing risk factors. Drew Inquiry Pt receiving controlled substance: No Vital Signs: 06/15/25 11:47 06/15/25 12:00 06/15/25 12:45 Temperature 98.1 F Temperature Source Oral Pulse Rate 76 Pulse Rate [Left Radial] 79 Respiratory Rate 20 22 14 Blood Pressure 121/60 Blood Pressure [Right Arm] 121/81 Blood Pressure Mean [Right Arm] 94 02 Sat by Pulse Oximetry 96 95 Oxygen Delivery Method Room Air 06/15/25 13:00 06/15/25 14:01 06/15/25 14:31 Temperature Temperature Source Pulse Rate 73 62 68 Pulse Rate [Left Radial] Respiratory Rate 12 Blood Pressure 153/83 H 125/60 116/59 L Blood Pressure [Right Arm] Blood Pressure Mean [Right Arm] 02 Sat by Pulse Oximetry 96 98 98 Oxygen Delivery Method Room Air 06/15/25 15:01 Temperature Temperature Source Pulse Rate 63 Pulse Rate [Left Radial] Respiratory Rate Blood Pressure 115/53 L Blood Pressure [Right Arm] Blood Pressure Mean [Right Arm] 02 Sat by Pulse Oximetry 98 Oxygen Delivery Method Lab Data Lab Results 06/15/25 11:45: WBC 8.6, RBC 4.24, Hgb 12.5, Hct 38.5, MCV 90.8, MCH 29.5, MCHC 32.5, RDW 15.0, Plt Count 384, MPV 10.4, Neut % (Auto) 62.4, Lymph % (Auto) 18.7, Otoe % (Auto) 11.7 H, Eos % (Auto) 5.9, Baso % (Auto) 0.8, Neut # (Auto) 5.4, Lymph # (Auto) 1.6, Otoe # (Auto) 1.0, Eos # (Auto) 0.5 H, Baso # (Auto) 0.1, Sodium 138, Potassium 3.6, Chloride 107, Carbon Dioxide 23, Anion Gap 11.6, BUN 22 H, Creatinine 1.00, Estimated Creat Clear 75, Estimated GFR 55 L, Est GFR ( Amer) 67, Glucose 102 H, Calcium 9.8, Total Bilirubin 0.8, AST 34, ALT 31, Alkaline Phosphatase 75, Troponin I < 0.01, NT-Pro-B Natriuret Pep 46.2, Total Protein 7.4, Albumin 4.4, Globulin 3.0, Albumin/Globulin Ratio 1.5, TSH 0.60, Free T4 1.46 06/15/25 14:45: Troponin I < 0.01 06/15/25 11:45 06/15/25 11:45 Orders (Tests/Meds): ED MEDICATIONS Discontinued Medications Generic Name Dose Route Start Last Admin Trade Name Giovanniq PRN Reason Stop Dose Admin Lactated Ringer's 1,000 mls @ 999 mls/hr 06/15/25 11:37 06/15/25 13:25 Lactated Ringer's 1000 Ml Bag IV 06/15/25 12:37 Infused .Q1H1M ONE Infusion Iopamidol 80 ml 06/15/25 12:30 06/15/25 12:32 Iopamidol-370 (76%);100ml Bottle IV 06/15/25 12:31 80 ml ONCE ONE Administration Sodium Chloride 10 ml 06/15/25 12:30 06/15/25 12:32 Sodium Chloride 0.9% 10ml Syr (Rad Only) IV 06/15/25 12:31 10 ml ONCE ONE Administration Sodium Chloride 50 ml 06/15/25 12:30 06/15/25 12:31 0.9 % Sodium Chloride 50 Ml Vial IV 06/15/25 12:31 50 ml ONCE ONE Administration ORDERS Category Date Time Status CT angio chest PE protocol Stat Cat Scan 06/15/25 11:37 Completed BNP [NT Pro Brain Natriuretic Pep.] Stat Lab 06/15/25 11:45 Completed CBC w/Auto Diff [Complete Blood Count Auto Diff] Stat Lab 06/15/25 11:45 Completed CMP [Comprehensive Metabolic Panel] Stat Lab 06/15/25 11:45 Completed Free T4 (Free Thyroxine) Stat Lab 06/15/25 11:45 Completed TSH [Thyroid Stimulating Hormone] Stat Lab 06/15/25 11:45 Completed Troponin I Q3H Lab 06/15/25 14:45 Completed Troponin I Q3H Lab 06/15/25 17:45 Ordered Troponin I Stat Lab 06/15/25 11:45 Completed ECG Data Tracing #1: I reviewed this ECG and interpreted as documented below: Normal sinus rhythm. No ST elevation or depression. QTc normal at 388 HEART Score History (anamnesis): Slightly suspicious ECG: Normal Age: >65 years Risk factors: 1-2 risk factors Troponin: </= normal limit HEART Score: 3 Medical Decision Narrative: Tania Ortiz is a 69y female with past medical history of hypertension, hyperlipidemia who presents to the emergency department for complaints of chest pain. 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 She states that she was sitting when this happened and she went [place] to sit in the court [place], however the symptoms did not resolve. She went back out and met with the paramedics and was given 3 and 25 mg of aspirin. She states that her pain then went from a 9 out of 10 to a 1 out of 10. Reportedly she was initially hypotensive and started on fluid bolus, however she is normotensive here. She states that the pain is worsened with deep breathing. She denies any history of blood clots. She denies any recent leg swelling. She denies any hemoptysis or cough. She states that she does not feel overtly short of breath. She denies any cardiac history. On arrival, patient is normotensive, heart rate within normal limits, breathing comfortably on room air with oxygen saturation 96% SpO2. Afebrile. Physical exam, stated above, reveals an overall well-appearing female in no distress. GCS 15. No wheezing, rales, murmurs. Abdomen soft, nontender nondistended. She has no peripheral edema. Differential diagnosis includes, but is not limited to: ACS, pulmonary embolism, heat exhaustion/heat exposure, pneumonia, pleurisy, costochondritis, among others. The most morbid conditions were considered and workup was based on these. Workup in the emergency department included: CTA PE, troponin, BNP, CBC, CMP, TSH, T4, EKG. Patient was administered 1L LR EKG without evidence of STEMI. See interpretation above. Laboratory studies shows no leukocytosis, no anemia, platelets within normal limits. Electrolytes within normal limits. Mildly elevated BUN of 22 but no EVE. Glucose normal at 102. Liver enzymes within normal limits. Initial troponin less than 0.01. BNP normal at 46. Thyroid studies were normal. Repeat troponin was also negative. CT imaging interpreted by me personally. No pulmonary embolism, no groundglass opacities. She does have thyroid nodules and enlarged thyroid gland. See final radiology report for details. Patient second troponin was also unremarkable and she had no recurrence of her symptoms today. Heart score of 3. Given this, is felt the patient is appropriate to discharge at this time. She will be given referral to cardiology and instructed follow-up with her primary care physician regarding her thyroid nodules and enlarged thyroid. Patient states that she has known history of thyroid nodules and has been biopsied in the past. Return precautions were given. All questions were answered. She demonstrated understanding and was in agreement this plan. She was then discharged from the emergency department in stable condition. Critical Care Critical Care Time Critical Care Time: No
--- OUTSIDE RECORDS SUMMARY | 2025-06-15 11:40 | XMS_ITS | Clinical Summary ---
Author Organization [facility] Address [address] [place] [address] Care Team Providers Care Cloth Mender Name Role Phone Barbara Lane MD Unavailable Nisa Benavidez APRN Primary Care Provider [phone] Allergies Active Allergy Reactions Criticality Noted Date Comments Atorvastatin Other - please docum ent in the comment field Low 09/02/2016 Cefdinir Rash High 11/02/2021 Erythromycin Rash Low 11/02/2021 Naproxen Other - please docum ent in the comment field Low 07/18/2017 nausea, vomiting, cold sweats Penicillin G Rash,Hives Medium 04/14/2020 Medications Dietary Management Product (RHEUMATE PO) Take 1 tablet by mouth 1 (one) time each day. Active Dietary Management Product (VASCULERA PO) Take 1 tablet by mouth 2 (two) times a day. Active omega-3 acid ethyl esters (Lovaza) 1 g capsule Take 2 capsules (2 g) by mouth 2 (two) times a day. 1 Active montelukast (Singulair) 10 MG tablet Take 1 tablet (10 mg) by mouth 1 (one) time each day. 1 Active lovastatin (Mevacor) 20 MG tablet Take 20 mg by mouth 1 (one) time each day. 1 Active scopolamine (Transderm-Scop) 1 MG/3DAYS patch 72 hour Transderm-Scop 1.5 mg transdermal patch (1 mg over 3 days) Apply 1 patch every 72 hours by transdermal route behind ear prn. Active ketotifen (Zaditor) 0.025 % ophthalmic solution 1 drop. Active cholecalciferol (Vitamin D-3) 50 MCG (2000 UT) capsule 1 capsule (50 mcg) 1 (one) time each day. Active Azelastine-Fluti casone 137-50 MCG/ACT suspension every 12 (twelve) hours. Active aspirin 81 MG EC tablet Take 1 tablet (81 mg) by mouth 2 (two) times a day. Active albuterol (2.5 MG/3ML) 0.083% nebulizer solution Inhale 3 mL (2.5 mg). Active Nucala 100 MG/ML solution auto-injector 2 Active tiZANidine (Zanaflex) 4 MG tablet Take 1 tablet (4 mg) by mouth every night. 1 Active predniSONE (Deltasone) 10 MG tablet Take 5 mg by mouth every other day. 2 Active losartan (Cozaar) 100 MG tablet Take 1 tablet (100 mg) by mouth 1 (one) time each day. 1 Active NAC 600 MG capsules Take 600 mg by mouth 1 (one) time each day. 1 Active Fluticasone-Umec lidin-Vilant (Trelegy Ellipta) 100-62.5-25 MCG/INH aerosol powder 1 (one) time each day. Active albuterol 108 (90 Base) MCG/ACT inhaler 1 puff(s) inhaled every 4 hours, As Needed Active acyclovir (Zovirax) 400 MG tablet Take 1 tablet (400 mg) by mouth if needed. Active cyclobenzaprine (Flexeril) 10 MG tablet Take 1 tablet (10 mg) by mouth 2 (two) times a day. 2 Active promethazine-dex tromethorphan (Phenergan-DM) 6.25-15 MG/5ML syrup Take 10 mL by mouth every 4 (four) hours if needed. 2 Active silver sulfADIAZINE (Silvadene) 1 % cream Apply 1 application topically 1 (one) time each day if needed. Active Nexlizet 180-10 MG tablet 3 Active leflunomide (Arava) 20 MG tablet Take 1 tablet (20 mg) by mouth 1 (one) time each day. 3 Active spironolactone (Aldactone) 50 MG tablet TAKE 1 TABLET BY MOUTH ONCE DAILY FOR 30 DAYS 3 Active levocetirizine (Xyzal) 5 MG tablet Take 1 tablet (5 mg) by mouth if needed. 4 Active hydrOXYzine HCl (Atarax) 10 MG tablet TAKE 1 TABLET BY MOUTH AT BEDTIME NEEDED FOR ITCHING 4 Active famotidine (Pepcid) 40 MG tablet Take 1 tablet (40 mg) by mouth 1 (one) time each day. 4 Active ezetimibe (Zetia) 10 MG tablet Take 1 tablet (10 mg) by mouth 1 (one) time each day. Active EPINEPHrine (Epipen) 0.3 MG/0.3ML injection syringe INJECT CONTENTS OF 1 PEN NEEDED FOR ALLERGIC REACTION DIRECTED 4 Active Active Problems No known active problems Family History Medical History Relation Name Comments Pancreatic cancer Father FH: pancre atic cancer Breast cancer Mother FH: breast can cer Relation Name Status Comments Father Mother Social History Tobacco Use Types Packs/Day Years Used Date Smoking Tobacco: Never Passive Smoke Exposure: Never Smokeless Tobacco: Never Alcohol Use Standard Drinks/Week Comments Not Currently 0 (1 standard drink = 0.6 oz pur e alcohol) PHQ-2 Answer Date Recorded Patient Health Questionnaire-2 Score 0 06/18/2024 Comments No Sex and Gender Information Value Date Recorded Sex Assigned at Not on file Legal Sex Female 6:21 PM EDT Gender Identity Not on file Sexual Orientation Not on file Last Filed Vital Signs Vital Sign Reading Time Taken Comments Blood Pressure 105/72 06/18/2024 2:49 PM EDT Pulse 87 06/18/2024 2:49 PM EDT Temperature 36.8 C (98.2 F) 06/18/2024 2:49 PM EDT Respiratory Rate 16 06/08/2023 2:39 PM EDT Oxygen Saturation 93% 06/18/2024 2:49 PM EDT Inhaled Oxygen Concentration - - Weight 82.5 kg (181 lb 14.1 oz) 06/18/2024 2:49 PM EDT Height 157.5 cm (5' 2 ) 06/18/2024 2:49 PM EDT Body Mass Index 33.27 06/18/2024 2:49 PM EDT Plan of Treatment Upcoming Encounters Date Type Department Care Team (Late st Contact Info) Description 06/19/2025 2:15 PM EDT Appointment [facility] [address] [place] [address] 06/19/2025 3:00 PM EDT Office Visit [facility] [address] [facility]nd [place] [address] Latonya Ya, CRANKSHAFT BALANCER [address] [facility] [address] [place] [address] Health Maintenance Due Date Last Done Comments [facility]-Hepatitis C Screening 1955 [facility]-Medicare Annual Wellness (AWV) 1955 [facility]-/Child/Adol SDOH Screenings 1957 [facility]-Obesity Intervention 1963 [facility]- SDOH Screenings 1975 [facility]-Adult SDOH Screenings 1975 CT Colonography 2002 Colonoscopy 2002 FIT-DNA 2002 FIT 2002 FOBT 2002 Sigmoidoscopy 2002 [facility]-Colorectal Cancer Screening 2002 [facility]-RSV Vaccine: 60+ Years or (1 - Risk 60-74 years 1-dose series) 2017 [facility]-Zoster Vaccines (1 of 2) 04/18/2019 02/21/2019, 08/03/2013 [facility]-Bone Density Scan 11/24/2019 11/24/2017, 018 [facility]-Pneumococcal Vaccine: 50+ Years (3 of 3 - PCV20 or PCV21) 04/27/2024 04/27/2019, 11/19/2013 TER-[id number]-80 Vaccine (4 - season) 2024 09/18/2021, 03/06/2021, 02/13/2021 [facility]-Depression Screening 06/18/2025 06/18/2024 [facility]-Influenza Vaccine (#1) 06/24/202507/10, 08/08/2017, 07/24/2016, Additional history exists [facility]-Breast Cancer Screening 06/18/202605/25, 06/08/2023, 06/08/2023, Additional history exists [facility]-DTaP,Tdap,and Td Vaccines (2 - Td or Tdap) 05/17/2028 05/17/2018 [facility]-Hepatitis A Vaccines Aged Out 03/21/2019, 08/24 No longer eligible based on patient's age to complete this topic HPV Vaccines Aged Out No longer eligi ble based on patient's age to complete this topic [facility]-HIB Vaccines Aged Out No longer e ligible based on patient's age to complete this topic [facility]-IPV Vaccines Aged Out No longer e ligible based on patient's age to complete this topic [facility]-Rotavirus Vaccines Aged Out No lo nger eligible based on patient's age to complete this topic Procedures Procedure Name Priority Date/Time Associated Diagnosis Comments MAMMOGRAPHY BREAST SCREENING TOMOSYNTHESIS BILATERAL Routine 06/18/2024 2:23 PM EDT Atypical ductal hyperplasia of breast Family history of breast cancer from Last 3 Months or Most Recently Relevant to Health Maintenance Results * (ABNORMAL) Mammography Breast Screening Tomosynthesis Bilateral (06/18/2024 2:23 PM EDT) Anatomical Region Laterality Modality Breast Bilateral Mammography Impressions 06/19/2024 1:30 PM EDT Findings indicate additional imaging studies of the left breast are required for a complete evaluation. BI-RADS CATEGORY: Overall: 0 - Incomplete: Needs Additional Imaging Evaluation RECOMMENDATION: - Additional Imaging Diagnostic Mammogram with Possible Ultrasound. Patient Lifetime Risk Score of Breast Malignancy: A risk score has not been calculated for this patient. This risk assessment is calculated using the Betzaida Risk Assessment model which may underestimate the lifetime risk of breast malignancy. COMMUNICATION: Computer-aided detection (CAD) and tomosynthesis were utilized by the radiologist in the interpretation of this examination. The results and recommendations will be sent to the patient in a printed lay language version of the imaging report. Narrative 06/19/2024 1:30 PM EDT EXAM: Mammography Breast Screening with Tomosynthesis REASON FOR EXAM: Screening Mammogram HISTORY: Patient is 68 y.o. Family medical history includes breast cancer in mother (comments: FH: breast cancer). Hormone history includes control (2 years). COMPARISON STUDIES: Compared to: 01/22/2019 Mammography Breast Screening Tomosynthesis Bilateral at [facility] 04/14/2020 Mammography Breast Screening Tomosynthesis Bilateral at [facility] 04/15/2021 Mammography Breast Screening Tomosynthesis Bilateral at [facility] 05/03/2022 Mammography Breast Screening Tomosynthesis Bilateral at [facility] 06/08/2023 Mammography Breast Screening Tomosynthesis Bilateral at [facility] BREAST COMPOSITION: There are scattered areas of fibroglandular density. FINDINGS: RIGHT: No suspicious masses, microcalcifications or areas of architectural distortion are seen. LEFT: Finding 1, possible asymmetry, 4mm in the central region of the breast with a middle depth 6 cm from the nipple. Referenced Adi slice(s) MLO#11 us Sal Choi APRN IMG BI PROCEDURES Final Res ult from Last 3 Months or Most Recently Relevant to Health Maintenance Insurance MEDICARE Care Teams Cloth Mender Relationship Specialty Start Date End Date Nisa Benavidez APRN [facility] [place] [address] PCP - General 06/08/[address] [place] [address] Consulting Physician Hematology and Oncology 11/02/21
--- OUTSIDE RECORDS SUMMARY | 2025-06-15 11:40 | XMS_ITS | Clinical Summary ---
Author Organization [facility] Address [address] [place] [address] Care Team Providers Care Beater Out Name Role Phone Pramod Nisa Mccall APRN Primary Care Provider [phone] Allergies Active Allergy Reactions Criticality Noted Date Comments Naproxen Sodium Other (See Comments) 11/28/2019 Syncope Cefadroxil Provider Review Needed 06/13/2024 Penicillins Rash Low 11/28/2019 Medications montelukast (SINGULAIR) 10 MG tablet Take 1 tablet by mouth every night at bedtime. 11/19/19 20 Active Azelastine-Flutic asone 137-50 MCG/ACT suspension into the nostril(s) as directed by provider. Twice daily Active Fluticasone-Umecl idin-Vilant (TRELEGY) 100-62.5-25 MCG/INH inhaler Inhale 1 puff. Once daily Active ketotifen (ZADITOR) 0.025 % ophthalmic solution 1 drop 2 (Two) Times a Day. Active albuterol (PROVENTIL) (2.5 MG/3ML) 0.083% nebulizer solution Take 2.5 mg by nebulization Every 4 (Four) Hours As Needed for Wheezing. Active albuterol sulfate HFA 108 (90 Base) MCG/ACT inhaler Inhale 2 puffs Every 4 (Four) Hours As Needed for Wheezing. Active losartan (COZAAR) 50 MG tabletIndications :Essential hypertension Take 1 tablet by mouth Daily. 90 tablet 1 07/10/20 21 Active omega-3 acid ethyl esters (LOVAZA) 1 g capsuleIndication s:Elevated triglycerides with high cholesterol Take 2 capsules by mouth 2 (Two) Times a Day. 360 capsule 3 07/10/20 Active Scopolamine 1 MG/3DAYS patch Place 1 patch on the skin as directed by provider Every 72 (Seventy-Two) Hours. 2 each 09/03/20 Active spironolactone (ALDACTONE) 50 MG tablet Take 1 tablet by mouth Daily. Active famotidine (PEPCID) 40 MG tablet Take 1 tablet by mouth Daily. Active Bempedoic Acid-Ezetimibe (Nexlizet) 180-10 MG tablet Take by mouth. Activ e levocetirizine (XYZAL) 5 MG tablet Take 1 tablet by mouth Every Evening. Active tiZANidine (ZANAFLEX) 4 MG tablet Take 1 tablet by mouth At Night As Needed for Muscle Spasms. Active cyclobenzaprine (FLEXERIL) 10 MG tablet Take 1 tablet by mouth 3 (Three) Times a Day As Needed for Muscle Spasms. Active ezetimibe (ZETIA) 10 MG tablet Take 1 tablet by mouth Daily. Active Cholecalciferol (Vitamin D3) 50 MCG (2000 UT) capsule Take 1 capsule by mouth Daily. Active hydrOXYzine (ATARAX) 10 MG tablet Take 1 tablet by mouth At Night As Needed for Itching (as needed for itching). 30 tablet 3 09/18/20 24 Active leflunomide (ARAVA) 20 MG tablet Take 1 tablet by mouth once daily 30 tablet 11/06/19 25 Active Active Problems Problem Noted Date Diagnosed Date High risk medication use 08/31/2024 Assessment & Plan (12/17/2024 12:48 PM EST): Status post bilateral hip replacements Assessment & Plan (12/17/2024 12:48 PM EST): Chronic fatigue 08/31/2024 Assessment & Plan (12/17/2024 12:48 PM EST): Hypercalcemia 06/13/2024 Psoriatic arthritis 06/13/2024 Assessment & Plan (12/17/2024 12:48 PM EST): Hip osteoarthritis 06/13/2024 Rash 06/13/2024 Moderate persistent asthma 11/28/2019 Mixed hyperlipidemia 11/28/2019 Essential hypertension 11/28/2019 DANY on CPAP 11/28/2019 Vitamin D deficiency 11/28/2019 Elevated triglycerides with high cholesterol 02/2020 Vitamin B12 deficiency 11/28/2019 Screening for diabetes mellitus 11/28/2019 Positive antinuclear antibody 09/14/2017 Gastroesophageal reflux disease 09/14/2017 Ganglion of hand 09/03/2016 Asthma 10/28/2015 Immunizations Immunization Administration Dates Next Due COVID-19 ([facility]) Purple Cap Monovalent 03/06/2021,02/13/2021 Flu Vaccine Quad PF >36MO 07/10/2018,,07/05/2016,07/17 Hepatitis A 03/21/2019,09/06/2018 MMR 05/06/2006,04/04/2006 Pneumococcal Conjugate 13-Va lent (PCV13) 04/27/2019 Pneumococcal Polysaccharide (PPSV23) 11/19/2013 Shingrix 05/21/2019,03/21/2019 Zostavax 08/03/2013 Family History Medical History Relation Name Comments Arthritis Daughter 1 Heidi Allergies Daughter 2 Nisa Arthritis Daughter 2 Nisa Hypertension Daughter 2 Nisa Bone cancer Father Cancer Father Diabetes Father Hyperlipidemia Father Hypertension Father Pancreatic cancer Father Bone cancer Mother Breast cancer Mother Cancer Mother Parkinsonism Mother Thyroid disease Mother Diabetes Paternal Grandmother Tuberculosis Paternal Grandmother Relation Name Status Comments Daughter 1 Heidi Alive Daughter 2 Nisa Alive Father Mother Paternal Grandmother Social History Tobacco Use Types Packs/Day Years Used Date Smoking Tobacco: Never Smokeless Tobacco: Never Tobacco Cessation:Counseling Given: Not Answered Alcohol Use Standard Drinks/Week Comments Never 0 (1 standard drink = 0.6 oz pur e alcohol) AUDIT-C Answer Date Recorded Frequency of Alcohol Consumption Never 11/28/2019 Average Number of Drinks Not on file 020 Frequency of Binge Drinking Not on file 02/2020 Comments Unknown Sex and Gender Information Value Date Recorded Sex Assigned at Not on file Legal Sex Female 9:59 AM EDT Gender Identity Not on file Sexual Orientation Not on file Last Filed Vital Signs Vital Sign Reading Time Taken Comments Blood Pressure 128/74 08/28/2024 7:57 AM EST Pulse 83 08/28/2024 7:57 AM EST Temperature 36.7 C (98 F) 07/10/2021 10:20 AM EDT Respiratory Rate 24 07/10/2021 10:20 AM EDT Oxygen Saturation 96% 08/28/2024 7:57 AM EST Inhaled Oxygen Concentration - - Weight 82.6 kg (182 lb 3.2 oz) 08/28/2024 7:57 A M EST Height 157.5 cm (5' 2 ) 08/28/2024 7:57 AM EST Body Mass Index 33.32 08/28/2024 7:57 AM EST Plan of Treatment Health Maintenance Due Date Last Done Comments DXA SCAN 1955 COLON CANCER SCREENING 5 YEA R SIGMOIDOSCOPY [address] COLONOGRAPHY 2002 FECAL OCCULT BLOOD TEST 2002 FIT Testing (1 year) 2002 ANNUAL WELLNESS VISIT 11/28/2019 HEPATITIS C SCREENING 11/28/2019 LIPID PANEL 07/10/2022 07/10/2021, 0802/2020, 12/04/2019 Pneumococcal Vaccine 50+ (3 of 3 - PCV20 or PCV21) 04/27/2024 04/27/2019, 11/19/2013 COVID-19 Vaccine (4 - 2023-2 5 season) 2024 09/18/2021, 03/06/2021, 02/13/2021 INFLUENZA VACCINE 07/24/2025 08/06/2021, , 08/08/2017, Additional history exists COLOGUARD 05/16/2026 05/16/2023 COLORECTAL CANCER SCREENING 05/16/2026 MAMMOGRAM 07/11/2026 07/11/2024, 06/24, 06/18/2024, Additional history exists TDAP/TD VACCINES (2 - Td or Tdap) 05/17/2028 018 ZOSTER VACCINE Completed 05/21/2019, 02/22, 08/03/2013 Procedures Procedure Name Priority Date/Time Associated Diagnosis Comments LIPID PANEL Routine 07/10/2021 11:10 AM EDT Elevated triglycerides with high cholesterol from Last 3 Months or Most Recently Relevant to Health Maintenance Results * (ABNORMAL) Lipid Panel (07/10/2021 11:10 AM EDT) Total Cholesterol 191 0 - 200 mg/dL [facility] Comment: Cholesterol Reference Ranges (U.S. Department of Health and Human Services ATP III Classifications) Desirable <200 mg/dL Borderline High 200-239 mg/dL High Risk >240 mg/dL Triglyceride Reference Ranges (U.S. Department of Health and Human Services ATP III Classifications) Normal <150 mg/dL Borderline High 150-199 mg/dL High 200-499 mg/dL Very High >500 mg/dL HDL Reference Ranges (U.S. Department of Health and Human Services ATP III Classifcations) Low <40 mg/dl (major risk factor for CHD) High >60 mg/dl ('negative' risk factor for CHD) LDL Reference Ranges (U.S. Department of Health and Human Services ATP III Classifcations) Optimal <100 mg/dL Near Optimal 100-129 mg/dL Borderline High 130-159 mg/dL High 160-189 mg/dL Very High >189 mg/dL Triglycerides 97 0 - 150 mg/dL [facility] HDL Cholesterol 61(H) 40 - 60 mg/dL [facility] VLDL Cholesterol Adelfo 17 5 - 40 mg/dL [facility] LDL Chol Calc (NIH) 113(H) 0 - 100 mg/dL [facility] Blood 07/10/2021 11:1 0 AM EDT 07/10/2021 Narrative [facility] - 07/11/2021 3:07 AM EDT Performed at: [address] [place] [id number] Fine Grade Operator: Ralph Walls MD, Phone: [phone] Patient Fasting: Y us Francine Whatley FLATWORK SUPERVISOR LAB BLOOD ORDERABLES Final Resul t [facility] [address] [place] [address], [place] [phone] [facility] [address] [place] [address], [place] [phone] from Last 3 Months or Most Recently Relevant to Health Maintenance [facility] Care Teams Beater Out Relationship Specialty Start Date End Date Nisa Benavidez APRN [address] [place] [address] PCP - General Nurse Practitioner 08/28/24
--- OUTSIDE RECORDS SUMMARY | 2025-06-15 11:40 | XMS_ITS | Encounter Summary ---
Author Organization [facility] Address [address] [place] [address] Care Team Providers Care Group Rooms Coordinator Name Role Phone Nisa Benavidez APRN Primary Care Provider [phone] Reason for Visit * Reason Comments Med Refill Encounter Details Date Type Department Care Team (Late st Contact Info) Description 06/16/2020 Refill [facility] [address] [place] [address] Francine Whatley APRN [address] [place], [place] [id number] Elevated triglycerides with high cholesterol Social History Tobacco Use Types Packs/Day Years Used Date Smoking Tobacco: Never Smokeless Tobacco: Never Alcohol Use Standard Drinks/Week Comments Never 0 [...] on file Sexual Orientation Not on file documented as of this encounter Plan of Treatment Not on file documented as of this encounter Visit Diagnoses Diagnosis Elevated triglycerides with high cholesterol Mixed hyperlipidemia documented in this encounter Care Teams Group Rooms Coordinator Relationship Specialty Start Date End Date Nisa Benavidez APRN [address] [place] [address] PCP - General Nurse Practitioner 08/28/24 documented as of this encounter
[2025-06-15 11:50] LABS: Hematocrit 38.5 % (37.0-47.0); Hemoglobin 12.5 g/dL (12.2-16.2); Immature Granulocytes % 0.5 %; Mean Corpuscular HGB Conc 32.5 g/dL (31.8-35.4); Mean Corpuscular Hemoglobin 29.5 pg (27.0-31.2); Mean Corpuscular Volume 90.8 fl (81-99); Nucleated Red Blood Cells % 0 %; Platelet Count 384 K/mm3 (142-424); Red Blood Count 4.24 M/mm3 (4.20-5.40); Red Cell Distribution Width-SD 49.9 fL; White Blood Count 8.6 K/mm3 (4.8-10.8)
[2025-06-15] MEDS: LACTATED RINGERS 1000ML 1,000 ML 999 ML IV (11:50)
[2025-06-15 12:07] LABS: Albumin Level 4.4 g/dl (3.5-5.0); Chloride 107 mmol/L (98-107); Potassium 3.6 mmoL/L (3.5-5.1); Sodium 138 mmol/L (136-145)
[2025-06-15 12:10] LABS: Alanine Aminotransferase 31 U/L (12-78); Albumin/Globulin Ratio 1.5 (1.1-1.8); Alkaline Phosphatase 75 U/L (38-126); Anion Gap 11.6 mEq/L (5-15); Aspartate Amino Transferase 34 U/L (14-36); Bilirubin,Total 0.8 mg/dl (0.2-1.3); Blood Urea Nitrogen 22 mg/dl (7-17); Carbon Dioxide 23 mmol/L (22.0-30.0); Creatinine Clearance Estimated 75 mL/min (50-200); Creatinine,Serum 1.00 mg/dl (0.52-1.04); Estimated Glomerular Filt Rate 55 ml/min (>60); GFR (African American) 67 ML/MIN (>60); Globulin 3.0 g/dL (1.3-3.2); Total Protein,Serum 7.4 g/dl (6.3-8.2)
[2025-06-15 12:11] LABS: Calcium 9.8 mg/dl (8.4-10.2); Glucose 102 mg/dl (74-100)
[2025-06-15 12:21] LABS: NT Pro Brain Natriuretic Pep. 46.2 pg/mL (0-125)
[2025-06-15] MEDS: 0.9 % SODIUM CHLORIDE 50 ML VIAL IV (12:31)
[2025-06-15] MEDS: IOPAMIDOL-370 (76%);100ML BOTTLE 80 ML IV (12:32)
[2025-06-15] MEDS: SODIUM CHLORIDE 0.9% 10ML SYR (RAD ONLY) 10 ML IV (12:32)
[2025-06-15 12:36] LABS: Troponin I < 0.01 ng/ml (0.00-0.034)
[2025-06-15 14:22] LABS: Free T4 (Free Thyroxine) 1.46 ng/dl (0.78-2.19)
[2025-06-15 14:37] LABS: Thyroid Stimulating Hormone 0.60 uIU/mL (0.465-4.68)
[2025-06-15 15:12] LABS: Troponin I < 0.01 ng/ml (0.00-0.034)
== END 2025-06-15 15:44 | disposition home or self-care (01) ==
PROVIDERS: Emergency Provider Student in an Organized Health Care Education/Training Program
DX: R07.9 Chest pain, unspecified (principal); E04.2 Nontoxic multinodular goiter; E78.5 Hyperlipidemia, unspecified; I10 Essential (primary) hypertension; J45.909 Unspecified asthma, uncomplicated
CPT/HCPCS: 71275; 80053; 83880; 84439; 84443; 84484; 85025; 93005; 96365; 99285; J7120; Q9967

== ENCOUNTER 2025-07-17 07:20 | Outpatient (CLI) | payer MEDICARE, SELFPAY ==
--- NOTE | 2025-07-17 | CA_ITS ---
APPROVED REPORT Exam: Exercise Treadmill Technologist: Darlene Bustillos Stress Nurse: Mojgan Jackson Ht: 5 ft 2 in Wt: 196 lbs BSA: 1.90 m2 HR: 70 bpm BP: 161/72 mmHg Medical History Medical History: HTN, Hyperlipidemia Medications: Acyclovir, Ezetimibe, Famotidine, Trelegy, Hydrochlorothiazide, Hydroxyzine HCl, Leflunomide, Levocetirizine, Losartan, Oxybutynin Chloride ER, Spironolactone, Tizanidine, Tyner-3 acid ethyl esters Allergies: Naproxen, Cefadroxil, Erythromycin, Penicillins Cardiac Risk Factors: HTN, Hyperlipidemia Stress Test Details Test: Exercise stress testing was performed using a Remberto protocol. HR Resting HR: 70 bpm Max Heart Rate (APMHR): 153.771227 bpm Max HR Achieved: 139 bpm Target HR (85% APMHR): 130.828336 bpm % of APMHR: 90.85 Recovery HR: 93 bpm BP Resting BP: 161.0/72.0 mmHg Max BP: 170.0/70.0 mmHg Recovery BP: 146.0/62.0 mmHg ECG Stress ECG Conclusion Pt injected @ target HR 133bpm @ 2 minutes Test stopped at 3 minutes due to hip pain unable to walk incline Mets 4.7 % of PM: 90% Less than 0.5mm upsloping ST segment changes Quinteros Treadmill score +3 Electronically signed by : Tona Becerril MD 07/17/2025 23:54:24
--- OUTSIDE RECORDS SUMMARY | 2025-07-17 07:27 | XMS_ITS | Encounter Summary ---
[facility] Address [address] [place] [address] Care Team Providers Care Erp Analyst Name Role Phone Nisa Benavidez APRN Primary Care Provider [phone] Reason for Visit * Reason Comments Med Refill Encounter Details Date Type Department Care Team (Late st Contact Info) Description 06/16/2020 Refill [facility] [address] [place] [address] Francine Whatley APRN [address] [place], [place] [id number] Elevated triglycerides with high cholesterol Social History [...] hyperlipidemia documented in this encounter Care Teams Erp Analyst Relationship Specialty Start Date End Date Nisa Benavidez APRN [address] [place] [address] PCP - General Nurse Practitioner 08/28/24 documented as of this encounter
--- OUTSIDE RECORDS SUMMARY | 2025-07-17 07:27 | XMS_ITS | Clinical Summary ---
Author Organization [facility] Address [address] [place] [address] Care Team Providers Care Director Pharmacovigilance Name Role Phone Pramod Nisa Mccall APRN Primary Care Provider [phone] Allergies Active Allergy Reactions Criticality Noted Date [...] Immunizations Immunization Administration Dates Next Due COVID-19 ([facility]) Purple Cap Monovalent 03/06/2021,02/13/2021 Flu Vaccine Quad [...] C SCREENING 11/28/2019 LIPID PANEL 07/10/2022 07/10/2021, 08/02/2020, 12/04/2019 Pneumococcal Vaccine 50+ (3 of 3 - PCV20 or PCV21) 04/27/2024 04/27/2019, 11/19/2013 INFLUENZA VACCINE 05/24/2025 08/06/2021, , 08/08/2017, Additional history exists COVID-19 Vaccine (2024-2 6 season) 2025 09/18/2021, 03/06/2021, 02/13/2021 COLOGUARD 05/16/2026 05/16/2023 COLORECTAL CANCER SCREENING 05/16/2026 [...] - 07/11/2021 3:07 AM EDT Performed at: [address] [place] [id number] Diver Helper: Ralph Walls MD, Phone: [phone] Patient Fasting: Y us Francine Whatley TRACK REPAIR SUPERVISOR LAB BLOOD ORDERABLES Final Resul t [facility] [address] [place] [address], [place] [phone] [facility] [address] [place] [address], [place] [phone] from Last 3 Months or Most Recently Relevant to Health Maintenance [facility] Care Teams Director Pharmacovigilance Relationship Specialty Start Date End Date Nisa Benavidez APRN [address] [place] [address] PCP - General Nurse Practitioner 08/28/24
--- NOTE | 2025-07-17 07:30 | NM_ITS ---
APPROVED REPORT Exam: Nuclear Stress Test Indication: cp..soa Patient Location: Outpatient Stress Tech: Darlene Bustillos [place] Tech:Debra YousifJOSEPH RT(R)(N) Ht: 5 ft 2 in Wt: 195 lbs Bra Size: 38c HR: 79 bpm BP: 141/88 mmHg BSA: 1.89 m2 TID: 1.08 BMI: 35.6 History: cp//soa Procedure: Patient exercised on Remberto protocol 3:04 minutes and sec, resting heart rate 79 bpm, resting blood pressure 141/88 mmHg, with exercise maximum heart rate achived was 139 bpm which is 90 % of the maximum predicted heart rate and blood pressure was 170/70 mmHg. Test was stopped due to fatigue. Patient denied any complaint of chest pain. Patient has fair exercise capacity, achieved 4.7 METs of workload on treadmill, the blood pressure response to exercise was normal. Cardiac Stress and Resting SPECT Images: Cardiac Stress and Resting SPECT images were obtained using technetium 99m Myoview 30.4 mCi stress and 10.20 mCi at rest. Resting and stress imaging in supine and prone positions demonstrate no evidence of fixed or reversible perfusion defects. Gated imaging demonstrates normal global and regional LV systolic function. LVEF is calculated at 69%. Conclusion: No evidence of fixed or reversible perfusion defects. Gated imaging demonstrates normal global and regional LV systolic function. LVEF is calculated at 69%. Electronically signed by : Tona Becerril MD 07/17/2025 23:52:00
[2025-07-17 09:00] VITALS: BP 161/72; BP 170/70; PULSE 70; RESP 14
--- NOTE | 2025-07-17 10:00 | CA_ITS ---
APPROVED REPORT EXAM: Comprehensive 2D, Doppler, and color-flow Echocardiogram Oncology Account Specialist: Silvia Vaughan CRT Ht: 5 ft 2 in Wt: 196lbs BSA: 1.90 BP: 130/77 mmHg Indications: Abnormal ECG, Chest Pain, Shortness of Breath, Hyperlipidemia, Hypertension/HDD 2D Dimensions LA Volume 46.30 mL LA Volume Index 23.90 mL/m2 (M/F) 16-34 M-Mode Dimensions RVDd 2.50 cm (0.9-2.6) LA Diam 3.90 cm (1.9-4.0) LVDd 3.94 cm (3.5-5.7) LVDs 1.84 cm (3.5-5.7) IVSd 1.54 cm (0.6-1.1) PWd 0.97 cm (0.6-1.1) EF (Teich) 84.70% FS 53.30% EDV (Teich) 67.50 mL TAPSE 2.69 (<1.7) ESV (Teich) 10.30 mL LV Diastology E Decel Time 163 (160-240 msec) E/A Ratio 0.79 MED A' 10.80 cm/s LAT A' 14.60 cm/s Aortic Valve AO Peak GR. 7.20 mmHg Mitral Valve MV A Velocity 92.0 (40-130 cm/s) E/A Ratio 0.79 Pulmonary Valve PV Peak Velocity 76.0 (50-150 cm/s) Tricuspid Valve TR P. Velocity 217.00 cm/s RAP Estimate 10.00 mmHg RVSP 28.80 mmHg Left Ventricle The left ventricle is normal size. Left ventricular systolic function is normal. The left ventricular ejection fraction is within the normal range. There is increased left ventricular wall thickness. There is normal LV segmental wall motion. Transmitral Doppler flow pattern suggests impaired LV relaxation. LVEF is 55% Right Ventricle The right ventricle is mildly dilated. The right ventricular systolic function is normal. Atria The left atrium size is normal. The right atrium size is normal. There is no color Doppler evidence of interatrial shunt. Aortic Valve The aortic valve opens well. There is no hemodynamically significant aortic valvular stenosis. Trace aortic regurgitation is present. Mitral Valve The mitral valve is normal in structure. No evidence of mitral valve stenosis. Trace mitral regurgitation is present. Tricuspid Valve The tricuspid valve leaflets are thin and pliable. Mild tricuspid regurgitation. RVSP is 20-25 mmHg. Pulmonic Valve The pulmonary valve is grossly normal in structure. Trace pulmonic valve regurgitation is present. Great Vessels The aortic root is normal in size. IVC is normal in size and collapses >50% with inspiration. Pericardium There is no pericardial effusion. Other Information Study Quality: Fair Conclusion Normal biventricular systolic function. Mild RV dilation. Mild TR. Electronically signed by : Tona Becerril MD 07/17/2025 12:11:47
[2025-07-17] MEDS: ISOTOPE MYOVIEW (PER STUDY) 1 DOSE IV (10:13)
[2025-07-17] MEDS: SODIUM CHLORIDE 0.9% 10ML SYR (RAD ONLY) 10 ML IV ×2 (10:13)
== END 2025-07-17 23:59 | disposition home or self-care (01) ==
LOC: RAD 07:25
PROVIDERS: PCP Nurse Practitioner; Visit Provider Nurse Practitioner Family
DX: I07.1 Rheumatic tricuspid insufficiency (principal); I11.9 Hypertensive heart disease without heart failure; E78.5 Hyperlipidemia, unspecified; R94.31 Abnormal electrocardiogram [ECG] [EKG]
CPT/HCPCS: 78452; 93017; 93018; 93306; A9502